=== PATIENT | female | born 2000 | race Hispanic/Latino ===

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

== ENCOUNTER 2021-12-26 16:06 | Emergency (ER) | payer SELFPAY | END 2021-12-26 17:39 | disposition home or self-care (01) | LOC: NAV ERS 16:06 | DX: S43.401A Unspecified sprain of right shoulder joint, initial encounter (principal); S43.402A Unspecified sprain of left shoulder joint, initial encounter; S60.211A Contusion of right wrist, initial encounter; S60.00XA Contusion of unspecified finger without damage to nail, initial encounter; M54.2 Cervicalgia; M25.531 Pain in right wrist; X50.1XXA Overexertion from prolonged static or awkward postures, initial encounter; Y09 Assault by unspecified means | CPT/HCPCS: 72125 ==